=== PATIENT | female | born 1990 | race African-American/Black ===

== ENCOUNTER 2016-07-21 16:30 | Emergency (ER) | payer MEDICAID ==
[~2016-07-21] VITALS: Ht 157.5 cm; Wt 94.9 kg
[2016-07-21 16:33] VITALS: BP 169/107
== END 2016-07-21 17:29 | disposition home or self-care (01) ==
LOC: ED 17:23
DX: K02.9 Dental caries, unspecified (principal); K08.89 Other specified disorders of teeth and supporting structures; I10 Essential (primary) hypertension; Z88.6 Allergy status to analgesic agent
CPT/HCPCS: 99283